=== PATIENT | male | born 1995 | race Caucasian/White ===

== ENCOUNTER 2017-04-23 13:25 | Emergency (ER) | payer BC ==
[2017-04-23 13:46] VITALS: RESP 18
[2017-04-23] MEDS ORDERED: ACETAMINOPHEN TAB 500 MG TAB PO STA (14:12)
[2017-04-23] MEDS ORDERED: IBUPROFEN 600 MG TAB PO STA (14:12)
--- NOTE | 2017-04-23 15:00 | XR ---
EXAMINATION TYPE: XR chest 2V DATE OF EXAM: 04/23/2017 COMPARISON: NONE TECHNIQUE: PA and lateral views submitted. HISTORY: Cough and congestion. FINDINGS: The lungs are clear and there is no pneumothorax, pleural effusion, or focal pneumonia. IMPRESSION: 1. No acute process.
--- NOTE | 2017-04-23 15:05 | ED ---
Fever HPI - General Chief Complaint: Fever Stated Complaint: Fever Time Seen by Provider: 04/23/17 14:26 Source: patient, RN notes reviewed, old records reviewed Mode of arrival: ambulatory Limitations: no limitations - History of Present Illness Initial Comments: 21-year-old male with a fever, cough congestion for about three days. His fianc e also tested positive for the influenza a few days prior. Chasitytent reports he has been dosing motrin and is still having a fever. Patient reports he has a poor appetitie, No vomiting or diarrhea. No abdominal pain, chest pain, shortness of breath. He reports body aches. - Related Data Previous Rx's Medication Instructions Recorded Acetaminophen Tab [Tylenol Tab] 650 mg PO Q6H #30 tablet 04/23/17 Ibuprofen 800 mg PO BID #30 tablet 04/23/17 Allergies Allergy/AdvReac Type Severity Reaction Status Date / Time cephalexin [From Keflex] Allergy Unknown Verified 04/23/17 13:46 phenobarbital Allergy Unknown Verified 04/23/17 13:46 Review of Systems ROS Statement: Those systems with pertinent positive or pertinent negative responses have been documented in the HPI. ROS Other: All systems not noted in ROS Statement are negative. Past Medical History Past Medical History: No Reported History History of Any Multi-Drug Resistant Organisms: None Reported Past Surgical History: No Surgical Hx Reported Past Psychological History: No Psychological Hx Reported Smoking Status: Current every day smoker Past Alcohol Use History: Occasional Past Drug Use History: None Reported General Exam - General Exam Comments Initial Comments: Well appearing 21 year old male, no distress. Limitations: no limitations General appearance: alert, in no apparent distress Head exam: Present: atraumatic, normocephalic, normal inspection Eye exam: Present: normal appearance, PERRL, EOMI. Absent: scleral icterus, conjunctival injection, periorbital swelling ENT exam: Present: normal exam, mucous membranes moist Neck exam: Present: normal inspection. Absent: tenderness, meningismus, lymphadenopathy Cardiovascular Exam: Present: regular rate, normal rhythm, normal heart sounds. Absent: systolic murmur, diastolic murmur, rubs, gallop, clicks GI/Abdominal exam: Present: soft, normal bowel sounds. Absent: distended, tenderness, guarding, rebound, rigid Extremities exam: Present: normal inspection, full ROM, normal capillary refill. Absent: tenderness, pedal edema, joint swelling, calf tenderness Back exam: Present: normal inspection Neurological exam: Present: alert, oriented X3, CN II-XII intact Psychiatric exam: Present: normal affect, normal mood Skin exam: Present: warm, dry, intact, normal color. Absent: rash Course Vital Signs 04/23/17 04/23/17 13:44 15:19 Temperature 101.3 F H 99.1 F Pulse Rate 89 85 Respiratory 18 18 Rate Blood Pressure 128/65 129/73 O2 Sat by Pulse 99 97 Oximetry Medical Decision Making - Medical Decision Making 21-year-old male with cough congestion and fever for the past three days. His fiance tested positive for influenza a. Patient has had a fever of 101. Given Motrin and Tylenol. Discussed he needs to follow up with primary care physician establish one. Patient is out of the window for Tamiflu benefit. Discussed that he should take a train Tylenol before ours and supportive measures. All questions were answered in return parameters were discussed.Patient was given note for work. - Lab Data Lab Results 04/23/17 Range/Units 13:48 Influenza Type A RNA Detected H (Not Detectd) Influenza Type B (PCR) Not Detected (Not Detectd) - Radiology Data Radiology results: report reviewed CXR is negative. Disposition Clinical Impression: Influenza A Disposition: HOME SELF-CARE Condition: Good Instructions: Fever in Adults (ED), Influenza (ED) Additional Instructions: Patient advised to follow-up with primary care provider. Take Motrin and Tylenol every 4 hours. Return to the emergency department if any alarming signs or symptoms occur. Prescriptions: Acetaminophen Tab [Tylenol Tab] 650 mg PO Q6H #30 tablet Ibuprofen 800 mg PO BID #30 tablet Referrals: None,Stated [Primary Care Provider] - 1-2 days Time of Disposition: 15:02
[2017-04-23 15:20] VITALS: BP 129/73; PULSE 85; TEMP 99.1
== END 2017-04-23 15:15 | disposition home or self-care (01) ==
LOC: EC 13:25
DX: J09.X2 Influenza due to identified novel influenza A virus with other respiratory manifestations (principal); F17.200 Nicotine dependence, unspecified, uncomplicated; Z88.1 Allergy status to other antibiotic agents; Z88.8 Allergy status to other drugs, medicaments and biological substances
CPT/HCPCS: 71046; 87502; 99284

== ENCOUNTER 2017-08-17 19:22 | Emergency (ER) | payer BC ==
[2017-08-17 19:29] VITALS: BP 137/80; PULSE 94; RESP 16; TEMP 98.3
[2017-08-17] MEDS ORDERED: SODIUM CHLORIDE 0.9% 1,000 ML IV STA (19:41)
[2017-08-17] MEDS ORDERED: ONDANSETRON 4 MG/2 ML VIAL IVP STA (19:41)
[2017-08-17] MEDS ORDERED: DIPH,PERTUS(ACELL)TETVAC-LF 0.5 ML VIAL IM ONE (19:41)
[2017-08-17] MEDS ORDERED: MORPHINE SULFATE 2 MG/ML SYRINGE IVP STA (19:44)
[2017-08-17] MEDS ORDERED: PIPERACILLIN-TAZOBACTAM 3.375 GM in DEXTROSE/WATER 1 50ML.BAG IVPB STA (19:59)
[2017-08-17 20:01] LABS: Basophils # (A) 0.1 k/uL (0-0.2); Basophils % (A) 1 %; Eosinophils # (A) 0.1 k/uL (0-0.7); Eosinophils % (A) 1 %; HCT 43.3 % (39.0-53.0); HGB 15.4 gm/dL (13.0-17.5); Lymphocytes # (A) 2.9 k/uL (1.0-4.8); Lymphocytes % (A) 29 %; MCH 32.8 pg (25.0-35.0); MCHC 35.6 g/dL (31.0-37.0); MCV 92.1 fL (80.0-100.0); Mean Platelet Volume 7.5; Monocytes # (A) 0.5 k/uL (0-1.0); Monocytes % (A) 5 %; Neutrophils # (A) 6.2 k/uL (1.3-7.7); Neutrophils % (A) 62 %; Platelet Count 265 k/uL (150-450); RDW 12.9 % (11.5-15.5); WBC 9.9 k/uL (3.8-10.6)
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
[2017-08-17 20:13] LABS: ALT 33 U/L (21-72); AST 27 U/L (17-59); Alkaline Phosphatase 50 U/L (38-126); Amylase 57 U/L (30-110); Anion Gap 16 mmol/L; Blood Urea Nitrogen 14 mg/dL (9-20); Calcium 9.8 mg/dL (8.4-10.2); Carbon Dioxide 25 mmol/L (22-30); Chloride 98 mmol/L (98-107); Creatine Kinase 214 U/L (55-170); Glucose 85 mg/dL (74-99); INR 1.1 (<1.2); Lipase 197 U/L (23-300); Partial Thromboplastin Time 24.5 sec (22.0-30.0); Potassium 4.2 mmol/L (3.5-5.1); Prothrombin Time 10.6 sec (9.0-12.0); Sodium 139 mmol/L (137-145); Total Bilirubin 0.4 mg/dL (0.2-1.3); Total Protein 7.8 g/dL (6.3-8.2)
[2017-08-17 20:15] LABS: Alcohol 98 mg/dL
[2017-08-17 20:26] LABS: Creatine Kinase MB 1.3 ng/mL (0.0-2.4); Troponin I <0.012 ng/mL (0.000-0.034)
[2017-08-17 20:31] LABS: Appearance,Urine Clear (Clear); Bilirubin,Urine Negative (Negative); Blood,Urine Negative (Negative); Color,Urine Colorless; Glucose,Urine (UA) Negative (Negative); Ketones,Urine Negative (Negative); Leukocyte Esterase,Urine Negative (Negative); Nitrite,Urine Negative (Negative); Protein,Urine Negative (Negative); Specific Gravity,Urine 1.002 (1.001-1.035); Urobilinogen,Urine <2.0 mg/dL (<2.0)
[2017-08-17 20:40] LABS: Amphetamine Screen,Urine Not Detected (NotDetected); Barbiturate Screen,Urine Not Detected (NotDetected); Benzodiazepines Screen,Urine Not Detected (NotDetected); Cocaine Screen,Urine Not Detected (NotDetected); Methadone Screen, Urine Not Detected (NotDetected); Opiate Screen,Urine Detected (NotDetected); Oxycodone Screen, Urine Not Detected (NotDetected); Phencyclidine Screen,Urine Not Detected (NotDetected); Tricyclic Antidepressant,Urine Not Detected (NotDetected); Urn Cannabinoid Scrn Detected (NotDetected)
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
--- NOTE | 2017-08-17 20:50 | XR ---
EXAMINATION TYPE: XR wrist complete BILATERAL DATE OF EXAM: 08/17/2017 COMPARISON: NONE HISTORY: Wrist pain TECHNIQUE: 4 views each wrist FINDINGS: I see no fracture nor dislocation. Joint spaces are normal. Carpal bones appear intact. The re are no erosions. IMPRESSION: Negative bilateral wrist exam.
--- NOTE | 2017-08-17 20:52 | XR ---
EXAMINATION TYPE: XR hand complete bilateral DATE OF EXAM: 08/17/2017 COMPARISON: NONE HISTORY: Generalized pain TECHNIQUE: 3 views each hand FINDINGS: I see no fracture nor dislocation. Joint spaces are normal. Metacarpals are intact. There i s a 5 mm density on the dorsal aspect of the left hand could be a foreign body. IMPRESSION: No fracture seen. Possible left hand foreign body.
--- NOTE | 2017-08-17 20:54 | XR ---
EXAMINATION TYPE: XR knee complete bilateral DATE OF EXAM: 08/17/2017 COMPARISON: NONE HISTORY: Knee pain TECHNIQUE: 3 views each knee FINDINGS: I see no fracture nor dislocation. Joint spaces are normal. There is no sign of any joint e ffusion. IMPRESSION: Negative bilateral knee exam.
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
[2017-08-17] MEDS ORDERED: MORPHINE SULFATE 2 MG/ML SYRINGE IM STA (23:03)
== END 2017-08-18 00:07 | disposition home or self-care (01) ==
LOC: EC 19:22
DX: S30.811A Abrasion of abdominal wall, initial encounter (principal); S40.812A Abrasion of left upper arm, initial encounter; S60.511A Abrasion of right hand, initial encounter; S80.212A Abrasion, left knee, initial encounter; S69.92XA Unspecified injury of left wrist, hand and finger(s), initial encounter; S89.91XA Unspecified injury of right lower leg, initial encounter; M54.2 Cervicalgia; F17.200 Nicotine dependence, unspecified, uncomplicated; Z23 Encounter for immunization; Z88.1 Allergy status to other antibiotic agents; Z88.8 Allergy status to other drugs, medicaments and biological substances; V86.56XA Driver of dirt bike or motor/cross bike injured in nontraffic accident, initial encounter; Y92.89 Other specified places as the place of occurrence of the external cause
CPT/HCPCS: 99285; 96365; 96366 ×3; 96375 ×2; 96376; 90471; 36415; 93005; 86900; 86901; 80053; 82150; 82550; 82553; 83605; 83690; 84484; 85025; 85610; 85730; 86850; 81003; 80306; 80320; 73562; 73110; 73130; 72170; 71045; 72125; 70450; 71260; 74177; 90715; L0120; J2405; J2270; J2543; Q9967